=== PATIENT | female | born 1990 | race African-American/Black ===

== ENCOUNTER 2017-06-26 18:39 | Emergency (ER) | payer OTHER ==
[2017-06-26 18:44] VITALS: BP 148/93; BMI 43.8
--- NOTE | 2017-06-26 19:11 | DR.GENAD ---
HPI - PCP Primary Care Physician: NFD - HPI Comment HPI Comment: Pt c/o 3-4 day h/o toothache. No meds. - Complaint/Symptoms Chief Complaint Doctors Comments: "toothache" Chief Complaint:: PATIENT STATED HER RIGHT SIDE OF HER MOUTH HAS BEEN HURTING FOR 2 DAYS - Nurses notes reviewed Nurses Notes Review: Yes - Source History Provided: Patient - Mode of Arrival Mode of Arrival: Ambulatory - Timing Onset of Chief Complaint: 06/24/17 - Duration Duration: Intermittent - Severity Severity: Moderate PMH - PMH Past Medical History: No Past Surgical History: No - Family History History of Family Medical Conditions: No - Social History Does patient currently use any type of tobacco product: Yes Have you used tobacco products in the last 12 months: Yes Type of Tobacco Use: Cigarettes How many years tobacco product used: 3 Does any household member use tobacco: No Alcohol Use: None Do you use any recreational Drugs:: No Lives With: Family Lives Where: Home - infectious screening In the last 2 months have you had wt loss of >10#?: NO Have you had fever, night sweats or hemotysis?: No Have you traveled outside the country in the last 6 months?: No Isolation: Standard ROS - Review of Systems Constitutional: No Symptoms Reported ENTM: See HPI Respiratoy: No Symptoms Reported Cardiovascular: No Symptoms Reported Gastrointestinal/Abdominal: No Symptoms Reported Genitourinary: No Symptoms Reported All Other Systems: Reviewed and Negative PE - Vital Signs Vitals: Temperature 98.9 F Pulse Rate 91 Respiratory Rate 16 Blood Pressure 148/93 O2 Sat by Pulse Oximetry 100 - General Limitations: No Limitations General Appearance: Alert - ENT Mouth Exam: Other (Right lower 2nd molar fratured and edematous gum and TTP) MDM - Differential Diagnosis Differential Diagnosis: toothace , tooth abscess - Diagnosis Discharge Problem: Toothache, Abscessed tooth, Fractured tooth - Discharge Plan Disposition: HOME, SELF-CARE Condition: Stable Prescriptions: Ampicillin Trihydrate 500 mg PO QID #28 capsule Ibuprofen [Motrin Tab 800 mg] 800 mg PO QID #30 tab - Follow ups/Referrals Follow ups/Referrals: NFD,None [Primary Care Provider] - 3 days - Instructions Instructions: Dental Pain, Dental Pain, [id number], Dental Abscess, Dental Abscess, [id number]
[2017-06-26] MEDS ORDERED: TORADOL 60 MG VIAL IM ONE (19:25)
[2017-06-26] MEDS ORDERED: TYLENOL #3 TAB (W/CODEINE) PO ONE ×2 (19:25→19:30)
[2017-06-26] MEDS ORDERED: TORADOL 60 MG VIAL ONE (19:30)
[2017-06-26] MEDS ORDERED: ROCEPHIN VIAL 2 GM IM NR (20:00)
== END 2017-06-26 19:52 | disposition home or self-care (01) ==
LOC: ER 18:49
DX: S02.5XXA Fracture of tooth (traumatic), initial encounter for closed fracture (principal); K04.7 Periapical abscess without sinus; K08.89 Other specified disorders of teeth and supporting structures; Y33.XXXA Other specified events, undetermined intent, initial encounter; Y92.9 Unspecified place or not applicable
CPT/HCPCS: 96372; 99282; J1885